=== PATIENT | male | born 1975 | race Asian ===

== ENCOUNTER 2019-03-31 21:40 | Outpatient (CLI) | payer OTHER | END 2019-03-31 21:45 | disposition short-term general hospital (02) | LOC: AMB 21:40 | DX: R06.02 Shortness of breath (principal); R41.82 Altered mental status, unspecified | CPT/HCPCS: A0425; A0427 ==

== ENCOUNTER 2019-03-31 21:50 | Emergency (ER) | payer OTHER ==
[~2019-03-31] VITALS: Ht 167.6 cm; Wt 95.3 kg
[2019-03-31 22:12] LABS: PLATELET COUNT 254 K/uL (142-355)
[2019-03-31 22:46] LABS: POTASSIUM 5.2 mmol/L (3.6-5.2)
[2019-04-01 06:50] VITALS: BP 167/116; TEMP 98.3
== END 2019-04-01 07:00 | disposition home or self-care (01) ==
LOC: ED 21:50
PROVIDERS: Family Medicine
DX: I10 Essential (primary) hypertension (principal); R06.03 Acute respiratory distress; F12.90 Cannabis use, unspecified, uncomplicated; F14.90 Cocaine use, unspecified, uncomplicated; Z99.2 Dependence on renal dialysis
CPT/HCPCS: 36415; 36600; 80053; 82550; 82553; 82805; 83605; 83880; 84484; 85027; 85379; 93005; 96360; 99284; J1940